=== PATIENT | female | born 1950 | race Caucasian/White ===

== ENCOUNTER 2018-02-18 10:10 | Outpatient (CLI) | payer MEDICARE, OTHER | END 2018-02-18 10:11 | disposition home or self-care (01) | LOC: BICRAD 10:10 | PROVIDERS: ATTEND Specialist | DX: R05 Cough (principal) | CPT/HCPCS: 71046 ==

== ENCOUNTER 2018-10-04 15:48 | Outpatient (CLI) | payer MEDICARE, OTHER | END 2018-10-04 15:49 | disposition home or self-care (01) | LOC: BICMAMMO 15:48 | PROVIDERS: ATTEND Specialist | DX: Z12.31 Encounter for screening mammogram for malignant neoplasm of breast (principal); Z80.3 Family history of malignant neoplasm of breast | CPT/HCPCS: 77063; 77067 ==

== ENCOUNTER 2019-10-08 09:56 | Outpatient (CLI) | payer MEDICARE, OTHER ==
--- NOTE | 2019-10-08 10:27 | MMO ---
Bilateral MAMMO Bilat Screen [facility]. CLINICAL HISTORY: Patient is 69 years old and is seen for screening. The patient has the following family history of breast cancer: mother, at age 35. The patient has no personal history of cancer. VIEWS: The views performed were: bilateral craniocaudal with tomosynthesis and bilateral mediolateral oblique with tomosynthesis. FILMS COMPARED: The present examination has been compared to prior imaging studies performed at [facility] on 09/25/2017 and 10/04/2018. This study has been interpreted with the assistance of computer-aided detection. MAMMOGRAM FINDINGS: There are scattered fibroglandular densities. There are no suspicious masses, suspicious calcifications, or new areas of architectural distortion. IMPRESSION: THERE IS NO MAMMOGRAPHIC EVIDENCE OF MALIGNANCY. A ROUTINE FOLLOW-UP MAMMOGRAM IN 1 YEAR IS RECOMMENDED. THE RESULTS OF THIS EXAM WERE SENT TO THE PATIENT. ACR BI-RADS Category 1 - Negative MAMMOGRAPHY NOTE: 1. A negative mammogram report should not delay a biopsy if a dominant of clinically suspicious mass is present. 2. Approximately 10% to 15% of breast cancers are not detected by mammography. 3. Adenosis and dense breasts may obscure an underlying neoplasm. Reported by: ESEQUIEL RICO MD Electonically Signed: [id number]
== END 2019-10-08 09:57 | disposition home or self-care (01) ==
LOC: BICMAMMO 09:56
PROVIDERS: ATTEND Specialist
DX: Z12.31 Encounter for screening mammogram for malignant neoplasm of breast (principal); Z80.3 Family history of malignant neoplasm of breast
CPT/HCPCS: 77063; 77067

== ENCOUNTER 2020-10-11 09:27 | Outpatient (CLI) | payer MEDICARE, OTHER ==
--- NOTE | 2020-10-11 11:10 | MMO ---
Bilateral MAMMO Bilat Screen [facility]. CLINICAL HISTORY: Patient is 70 years old and is seen for screening. The patient has the following family history of breast cancer: mother, at age 35. The patient has no personal history of cancer. VIEWS: The views performed were: bilateral craniocaudal with tomosynthesis and bilateral mediolateral oblique with tomosynthesis. FILMS COMPARED: The present examination has been compared to prior imaging studies performed at [facility] on 09/25/2017, 10/04/2018 and 10/08/2019. This study has been interpreted with the assistance of computer-aided detection. MAMMOGRAM FINDINGS: There are scattered fibroglandular densities. There are stable benign appearing calcifications seen in both breasts. There are no suspicious masses, suspicious calcifications, or new areas of architectural distortion. IMPRESSION: THERE IS NO MAMMOGRAPHIC EVIDENCE OF MALIGNANCY. A ROUTINE FOLLOW-UP MAMMOGRAM IN 1 YEAR IS RECOMMENDED. THE RESULTS OF THIS EXAM WERE SENT TO THE PATIENT. ACR BI-RADS Category 2 - Benign finding MAMMOGRAPHY NOTE: 1. A negative mammogram report should not delay a biopsy if a dominant of clinically suspicious mass is present. 2. Approximately 10% to 15% of breast cancers are not detected by mammography. 3. Adenosis and dense breasts may obscure an underlying neoplasm. Reported by: SALBADOR HAYWOOD MD Electonically Signed: [id number]
== END 2020-10-11 09:28 | disposition home or self-care (01) ==
LOC: BICMAMMO 09:27
PROVIDERS: ATTEND Specialist
DX: Z12.31 Encounter for screening mammogram for malignant neoplasm of breast (principal); Z80.3 Family history of malignant neoplasm of breast
CPT/HCPCS: 77063; 77067

== ENCOUNTER 2021-10-26 10:28 | Outpatient (CLI) | payer MEDICARE, OTHER | END 2021-10-26 10:29 | disposition home or self-care (01) | LOC: BICMAMMO 10:28 | PROVIDERS: ATTEND Specialist | DX: Z12.31 Encounter for screening mammogram for malignant neoplasm of breast (principal); Z80.3 Family history of malignant neoplasm of breast | CPT/HCPCS: 77063; 77067 ==

== ENCOUNTER 2022-11-02 08:56 | Outpatient (CLI) | payer MEDICARE | END 2022-11-02 08:57 | disposition home or self-care (01) | LOC: BICMAMMO 08:56 | PROVIDERS: ATTEND Specialist | DX: Z12.31 Encounter for screening mammogram for malignant neoplasm of breast (principal); Z80.3 Family history of malignant neoplasm of breast | CPT/HCPCS: 77063; 77067 ==

== ENCOUNTER 2022-12-27 09:08 | Outpatient (CLI) | payer MEDICARE | END 2022-12-27 09:09 | disposition home or self-care (01) | LOC: BICMAMMO 09:08 | PROVIDERS: ATTEND Specialist | DX: Z13.820 Encounter for screening for osteoporosis (principal); M85.851 Other specified disorders of bone density and structure, right thigh; M85.852 Other specified disorders of bone density and structure, left thigh | CPT/HCPCS: 77080 ==

== ENCOUNTER 2025-07-16 10:49 | Outpatient (CLI) | payer MEDICARE | END 2025-07-16 10:50 | disposition home or self-care (01) | LOC: BICRAD 10:49 | PROVIDERS: ATTEND Specialist | DX: M54.50 Low back pain, unspecified (principal); M47.816 Spondylosis without myelopathy or radiculopathy, lumbar region; M51.34 Other intervertebral disc degeneration, thoracic region; Z91.81 History of falling | CPT/HCPCS: 72072; 72100 ==

== ENCOUNTER 2025-07-24 07:56 | Outpatient (CLI) | payer MEDICARE | END 2025-07-24 07:57 | disposition home or self-care (01) | LOC: BICCT 07:56 | PROVIDERS: ATTEND Specialist | DX: M54.50 Low back pain, unspecified (principal); M54.6 Pain in thoracic spine; M47.816 Spondylosis without myelopathy or radiculopathy, lumbar region; M47.817 Spondylosis without myelopathy or radiculopathy, lumbosacral region; M47.815 Spondylosis without myelopathy or radiculopathy, thoracolumbar region; M47.814 Spondylosis without myelopathy or radiculopathy, thoracic region; J98.4 Other disorders of lung; J47.9 Bronchiectasis, uncomplicated; R91.8 Other nonspecific abnormal finding of lung field | CPT/HCPCS: 72128; 72131 ==